=== PATIENT | female | born 1965 | race Two or more races ===

== ENCOUNTER 2021-09-17 08:24 | Day surgery (SDC) | payer OTHER ==
[2021-09-17 09:44] LABS: HEMATOCRIT 42.8 % (32.4-45.2); MCH 26.1 pg (25.7-33.7); MCHC 32.6 g/dl (32.0-36.0); MEAN CELL VOLUME 80.1 fl (80-96); MEAN PLT VOLUME 9.7 fl (7.5-11.1); PLATELET COUNT 284 10^3/uL (134-434); RBC 5.34 M/mm3 (3.60-5.2); RDW 13.4 % (11.6-15.6); WHITE BLOOD COUNT 12.9 K/mm3 (4.0-10.0)
[2021-09-17 10:13] LABS: CALCIUM 9.6 mg/dL (8.5-10.1)
[2021-09-17 10:14] LABS: ALBUMIN 3.9 g/dl (3.4-5.0); BLOOD UREA NITROGEN 14.9 mg/dL (7-18)
[2021-09-17 10:17] LABS: CREATININE 0.8 mg/dL (0.55-1.3)
[2021-09-17 10:18] LABS: BILIRUBIN,TOTAL 0.6 mg/dL (0.2-1); TOT PROT 7.6 g/dl (6.4-8.2)
[2021-09-17] MEDS ORDERED: PALONOSETRON HCL 0.25 MG/5 ML VIAL IVPUSH ONE (10:30)
[2021-09-17] MEDS ORDERED: DEXAMETHASONE SODIUM PHOSPHATE 10 MG in SODIUM CHLORIDE 50 ML IVPB ONE (10:30)
[2021-09-17] MEDS ORDERED: FOSAPREPITANT DIMEGLUMINE 150 MG in SODIUM CHLORIDE 145 ML IVPB ONE (10:30)
[2021-09-17] MEDS ORDERED: PERTUZUMAB 840 MG in SODIUM CHLORIDE 250 ML IVPB ONE (11:00)
[2021-09-17] MEDS ORDERED: TRASTUZUMAB-ANNS 510 MG in SODIUM CHLORIDE 250 ML IVPB ONE (12:00)
[2021-09-17 12:57] LABS: ANISOCYTOSIS 0; HELMET CELLS 0; HOWELL-JOLLY BODIES 0; MACROCYTOSIS 0; OVALOCYTE 0; PLATELET ESTIMATE NORMAL; ROULEAU 0; SICKELED CELLS 0; TARGET CELLS 0; TEAR DROP CELLS 0; TOXIC GRANULATION 0
[2021-09-17] MEDS ORDERED: DOCETAXEL 124 MG in SODIUM CHLORIDE 250 ML IV ONE (13:30)
[2021-09-17 17:18] VITALS: TEMP 98.1
[2021-09-17 17:29] VITALS: BP 152/87; PULSE 101
[2021-09-17] MEDS ORDERED: PORTA CATH FLUSH 10 ML IVPUSH ONE (17:29)
== END 2021-09-17 18:57 | disposition home or self-care (01) ==
LOC: JCHEMO 08:24
PROVIDERS: ATTEND Internal Medicine Hematology & Oncology
DX: Z51.11 Encounter for antineoplastic chemotherapy (principal); C50.911 Malignant neoplasm of unspecified site of right female breast
CPT/HCPCS: 36415; 80053; 83615; 83735; 85025; 96367; 96375; 96413; 96417; J1453; J2469; J9171; J9306; Q5117

== ENCOUNTER 2021-09-22 08:50 | Day surgery (SDC) | payer OTHER ==
[2021-09-22] MEDS ORDERED: PEGFILGRASTIM-CBQV (UDENYCA) 6 MG/0.6 ML SYRINGE SQ ONE (09:00)
[2021-09-22 15:28] VITALS: BP 113/84; PULSE 108; TEMP 98.1
== END 2021-09-22 12:30 | disposition home or self-care (01) ==
LOC: JCHEMO 08:50 → J7W 08:51 → JCHEMO 12:30
PROVIDERS: ATTEND Internal Medicine Hematology & Oncology
PROC: 3E033GC Introduction of Other Therapeutic Substance into Peripheral Vein, Percutaneous Approach (ICD-10-PCS; principal; 2021-09-22)
DX: Z76.89 Persons encountering health services in other specified circumstances (principal); C50.911 Malignant neoplasm of unspecified site of right female breast
CPT/HCPCS: 96372; Q5111

== ENCOUNTER 2021-09-26 09:50 | Day surgery (SDC) | payer OTHER ==
[2021-09-26 10:23] VITALS: BP 123/88; PULSE 90; TEMP 98.3
[2021-09-26 11:00] LABS: HEMATOCRIT 40.9 % (32.4-45.2); HEMOGLOBIN 13.2 GM/dL (10.7-15.3); MCH 25.6 pg (25.7-33.7); MCHC 32.2 g/dl (32.0-36.0); MEAN CELL VOLUME 79.5 fl (80-96); MEAN PLT VOLUME 9.6 fl (7.5-11.1); PLATELET COUNT 269 10^3/uL (134-434); RBC 5.15 M/mm3 (3.60-5.2); RDW 13.2 % (11.6-15.6)
[2021-09-26 11:08] LABS: WHITE BLOOD COUNT 57.3 K/mm3 (4.0-10.0)
[2021-09-26 11:24] LABS: CALCIUM 8.8 mg/dL (8.5-10.1)
[2021-09-26 11:25] LABS: ALBUMIN 3.2 g/dl (3.4-5.0); MAGNESIUM 2.1 mg/dL (1.8-2.4)
[2021-09-26 11:28] LABS: CREATININE 0.7 mg/dL (0.55-1.3)
[2021-09-26 11:29] LABS: BILIRUBIN,TOTAL 0.5 mg/dL (0.2-1); TOT PROT 6.4 g/dl (6.4-8.2)
[2021-09-26] MEDS ORDERED: MAG HYDROX/ALH/SMC/DPHA/LIDO 240 ML MOUTHWASH MM SCH (12:00)
[2021-09-26] MEDS ORDERED: LOPERAMIDE HCL 2 MG CAPSULE PO ONE (12:00)
[2021-09-26] MEDS ORDERED: NYSTATIN 500,000 UNITS/5 ML SUSPENSION PO SCH (12:00)
[2021-09-26] MEDS ORDERED: DEXTROSE 5%-NORMAL SALINE 1,000 ML IV ONE (12:00)
[2021-09-26] MEDS: KCL 10 MEQ IVPB 10 MEQ/100 ML INFUS.BAG IVPB PRN ×2 (12:14→13:23)
[2021-09-26 12:28] LABS: ANISOCYTOSIS 0; MACROCYTOSIS 0; PLATELET ESTIMATE NORMAL; TOXIC GRANULATION 2+
[2021-09-26] MEDS ORDERED: ONDANSETRON 4 MG/2 ML VIAL ONE (13:17)
[2021-09-26] MEDS ORDERED: PANTOPRAZOLE SODIUM 40 MG VIAL IVPUSH ONE (13:30)
[2021-09-26] MEDS ORDERED: ONDANSETRON 4 MG/2 ML VIAL IVPB ONE (13:30)
[2021-09-26] MEDS ORDERED: LOPERAMIDE HCL 2 MG CAPSULE PO PRN (16:00)
[2021-09-26] MEDS ORDERED: PORTA CATH FLUSH 10 ML IVPUSH ONE (16:01)
== END 2021-09-26 16:37 | disposition home or self-care (01) ==
LOC: JONCCHEMO 09:50 → JCHEMO 09:50 → JONCCHEMO 16:37
PROVIDERS: ATTEND Internal Medicine Hematology & Oncology
PROC: 3E043GC Introduction of Other Therapeutic Substance into Central Vein, Percutaneous Approach (ICD-10-PCS; principal; 2021-09-26)
PROC: 3E043GC Introduction of Other Therapeutic Substance into Central Vein, Percutaneous Approach (ICD-10-PCS; 2021-09-26)
DX: C50.911 Malignant neoplasm of unspecified site of right female breast (principal); Z76.89 Persons encountering health services in other specified circumstances
CPT/HCPCS: 36415; 80053; 83735; 85025; 96365; 96367

== ENCOUNTER 2021-10-15 08:41 | Day surgery (SDC) | payer OTHER ==
[2021-10-15] MEDS ORDERED: DEXAMETHASONE SODIUM PHOSPHATE 10 MG, DIPHENHYDRAMINE 50 MG in SODIUM CHLORIDE 100 ML IVPB ONE (10:00)
[2021-10-15] MEDS ORDERED: PALONOSETRON HCL 0.25 MG/5 ML VIAL IVPUSH ONE (10:00)
[2021-10-15] MEDS ORDERED: FOSAPREPITANT DIMEGLUMINE 150 MG in SODIUM CHLORIDE 145 ML IVPB ONE (10:00)
[2021-10-15 10:01] LABS: BASO % 0.2 % (0-2.0); HEMATOCRIT 35.9 % (32.4-45.2); LYMPH % 12.9 % (8-40); MCH 26.6 pg (25.7-33.7); MCHC 33.4 g/dl (32.0-36.0); MEAN CELL VOLUME 79.4 fl (80-96); MEAN PLT VOLUME 8.2 fl (7.5-11.1); NEUT % 80.9 % (42.8-82.8); PLATELET COUNT 389 10^3/uL (134-434); RBC 4.52 M/mm3 (3.60-5.2); RDW 14.5 % (11.6-15.6); WHITE BLOOD COUNT 9.6 K/mm3 (4.0-10.0)
[2021-10-15 10:27] LABS: ALBUMIN 3.5 g/dl (3.4-5.0); BLOOD UREA NITROGEN 12.9 mg/dL (7-18); CALCIUM 9.5 mg/dL (8.5-10.1); MAGNESIUM 2.1 mg/dL (1.8-2.4)
[2021-10-15 10:30] LABS: CREATININE 0.7 mg/dL (0.55-1.3)
[2021-10-15] MEDS ORDERED: DOCETAXEL 100 MG in SODIUM CHLORIDE 250 ML IV ONE (10:30)
[2021-10-15 10:32] LABS: BILIRUBIN,TOTAL 0.5 mg/dL (0.2-1); TOT PROT 6.6 g/dl (6.4-8.2)
[2021-10-15] MEDS ORDERED: PERTUZUMAB 420 MG in SODIUM CHLORIDE 250 ML IVPB ONE (11:30)
[2021-10-15] MEDS ORDERED: SODIUM CHLORIDE IVPB ONE (12:00)
[2021-10-15] MEDS ORDERED: TRASTUZUMAB ANNS IVPB ONE (12:00)
[2021-10-15 16:43] VITALS: BP 118/76; PULSE 90; TEMP 97.9
== END 2021-10-15 15:00 | disposition home or self-care (01) ==
LOC: J7W 08:41 → JCHEMO 08:41
PROVIDERS: ATTEND Internal Medicine Hematology & Oncology
DX: Z51.11 Encounter for antineoplastic chemotherapy (principal); C50.911 Malignant neoplasm of unspecified site of right female breast
CPT/HCPCS: 36415; 80053; 83615; 83735; 85025; 96367; 96375; 96413; 96417; J1453; J2469; J9171; J9306; Q5117

== ENCOUNTER 2021-10-16 13:21 | Day surgery (SDC) | payer OTHER ==
[~2021-10-16 13:21] MED LIST: PEGFILGRASTIM-CBQV (UDENYCA) 6 MG/0.6 ML SYRINGE SQ ONE
[2021-10-16 17:37] VITALS: BP 137/71; PULSE 72; TEMP 98.4
== END 2021-10-16 13:35 | disposition home or self-care (01) ==
LOC: JCHEMO 13:21 → J7W 13:23 → JCHEMO 13:35
PROVIDERS: ATTEND Internal Medicine Hematology & Oncology
PROC: 3E013GC Introduction of Other Therapeutic Substance into Subcutaneous Tissue, Percutaneous Approach (ICD-10-PCS; principal; 2021-10-16)
DX: C50.911 Malignant neoplasm of unspecified site of right female breast (principal); Z76.89 Persons encountering health services in other specified circumstances
CPT/HCPCS: 96372; Q5111

== ENCOUNTER 2021-10-24 09:10 | Day surgery (SDC) | payer OTHER ==
[~2021-10-24 09:10] MED LIST changes: +ONDANSETRON 4 MG/2 ML VIAL IVPB ONE; -PEGFILGRASTIM-CBQV (UDENYCA) 6 MG/0.6 ML SYRINGE SQ ONE; +SODIUM CHLORIDE 1,000 ML IV ONE
[2021-10-24 09:50] LABS: HEMATOCRIT 37.6 % (32.4-45.2); HEMOGLOBIN 12.4 GM/dL (10.7-15.3); MCH 26.5 pg (25.7-33.7); MCHC 32.9 g/dl (32.0-36.0); MEAN CELL VOLUME 80.6 fl (80-96); MEAN PLT VOLUME 9.1 fl (7.5-11.1); PLATELET COUNT 185 10^3/uL (134-434); RBC 4.67 M/mm3 (3.60-5.2); RDW 14.7 % (11.6-15.6); WHITE BLOOD COUNT 26.4 K/mm3 (4.0-10.0)
[2021-10-24 10:17] LABS: CALCIUM 9.1 mg/dL (8.5-10.1)
[2021-10-24 10:18] LABS: ALBUMIN 3.7 g/dl (3.4-5.0); BLOOD UREA NITROGEN 7.8 mg/dL (7-18); MAGNESIUM 2.2 mg/dL (1.8-2.4)
[2021-10-24 10:20] LABS: CREATININE 0.7 mg/dL (0.55-1.3)
[2021-10-24 10:22] LABS: BILIRUBIN,TOTAL 0.4 mg/dL (0.2-1); TOT PROT 6.2 g/dl (6.4-8.2)
[2021-10-24 10:59] LABS: ANISOCYTOSIS 1+; MACROCYTOSIS 0; OVALOCYTE 2+; TEAR DROP CELLS 1+; TOXIC GRANULATION 2+
[2021-10-24] MEDS ORDERED: POTASSIUM CHLORIDE TABS 20 MEQ TABLET.ER (FP) PO ONE (11:00)
[2021-10-24] MEDS: KCL 10 MEQ IVPB 10 MEQ/100 ML INFUS.BAG IVPB SCH ×2 (11:22→12:22)
[2021-10-24] MEDS ORDERED: ONDANSETRON 4 MG/2 ML VIAL IVPB ONE (11:30)
[2021-10-24 16:12] VITALS: TEMP 98.8
[2021-10-24 16:18] VITALS: BP 115/73; PULSE 84
== END 2021-10-24 14:00 | disposition home or self-care (01) ==
LOC: JINFUSION 09:10 → J7W 09:10 → JINFUSION 14:00
PROVIDERS: ATTEND Internal Medicine Hematology & Oncology
PROC: 3E043GC Introduction of Other Therapeutic Substance into Central Vein, Percutaneous Approach (ICD-10-PCS; principal; 2021-10-24)
PROC: 3E043GC Introduction of Other Therapeutic Substance into Central Vein, Percutaneous Approach (ICD-10-PCS; 2021-10-24)
DX: C50.911 Malignant neoplasm of unspecified site of right female breast (principal); Z76.89 Persons encountering health services in other specified circumstances
CPT/HCPCS: 36415; 80053; 83615; 83735; 85025; 96365; 96366; 96368; 96375

== ENCOUNTER 2021-11-05 08:35 | Day surgery (SDC) | payer OTHER ==
[2021-11-05 09:57] LABS: BASO % 0.6 % (0-2.0); EOS % 0.5 % (0-4.5); HEMATOCRIT 34.9 % (32.4-45.2); HEMOGLOBIN 11.3 GM/dL (10.7-15.3); LYMPH % 24.5 % (8-40); MCH 26.7 pg (25.7-33.7); MCHC 32.5 g/dl (32.0-36.0); MEAN PLT VOLUME 7.9 fl (7.5-11.1); MONO % 5.4 % (3.8-10.2); PLATELET COUNT 312 10^3/uL (134-434); RBC 4.26 M/mm3 (3.60-5.2); RDW 17.2 % (11.6-15.6); WHITE BLOOD COUNT 6.7 K/mm3 (4.0-10.0)
[2021-11-05 10:17] LABS: ALBUMIN 3.6 g/dl (3.4-5.0); CALCIUM 9.1 mg/dL (8.5-10.1); MAGNESIUM 2.1 mg/dL (1.8-2.4)
[2021-11-05 10:18] LABS: BLOOD UREA NITROGEN 11.5 mg/dL (7-18)
[2021-11-05 10:20] LABS: CREATININE 0.5 mg/dL (0.55-1.3)
[2021-11-05 10:22] LABS: BILIRUBIN,TOTAL 0.7 mg/dL (0.2-1); TOT PROT 6.1 g/dl (6.4-8.2)
[2021-11-05] MEDS ORDERED: FOSAPREPITANT DIMEGLUMINE 150 MG in SODIUM CHLORIDE 145 ML IVPB ONE (10:30)
[2021-11-05] MEDS ORDERED: PALONOSETRON HCL 0.25 MG/5 ML VIAL IVPUSH ONE (10:30)
[2021-11-05] MEDS ORDERED: DEXAMETHASONE SODIUM PHOSPHATE 10 MG in SODIUM CHLORIDE 50 ML IVPB ONE (10:30)
[2021-11-05] MEDS ORDERED: DOCETAXEL 100 MG in SODIUM CHLORIDE 250 ML IV ONE (11:00)
[2021-11-05] MEDS ORDERED: PERTUZUMAB 420 MG in SODIUM CHLORIDE 250 ML IVPB ONE (12:00)
[2021-11-05] MEDS ORDERED: SODIUM CHLORIDE IVPB ONE (12:30)
[2021-11-05] MEDS ORDERED: TRASTUZUMAB ANNS IVPB ONE (12:30)
[2021-11-05 14:52] VITALS: BP 133/90; PULSE 101; TEMP 98.9
== END 2021-11-05 14:15 | disposition home or self-care (01) ==
LOC: JCHEMO 08:35 → J7W 08:36 → JCHEMO 14:15
PROVIDERS: ATTEND Internal Medicine Hematology & Oncology
PROC: 3E04305 Introduction of Other Antineoplastic into Central Vein, Percutaneous Approach (ICD-10-PCS; principal; 2021-11-05)
PROC: 3E043GC Introduction of Other Therapeutic Substance into Central Vein, Percutaneous Approach (ICD-10-PCS; 2021-11-05)
DX: Z51.11 Encounter for antineoplastic chemotherapy (principal); C50.911 Malignant neoplasm of unspecified site of right female breast
CPT/HCPCS: 36415; 80053; 83615; 83735; 85025; 96367; 96413; 96417; J9306; Q5117

== ENCOUNTER 2021-11-26 07:14 | Day surgery (SDC) | payer OTHER ==
[~2021-11-26 07:14] MED LIST changes: -ONDANSETRON 4 MG/2 ML VIAL IVPB ONE; +PEGFILGRASTIM-CBQV (UDENYCA) 6 MG/0.6 ML SYRINGE SQ ONE; -SODIUM CHLORIDE 1,000 ML IV ONE
[2021-11-26 07:58] LABS: EOS % 2.6 % (0-4.5); HEMATOCRIT 37.7 % (32.4-45.2); HEMOGLOBIN 12.6 GM/dL (10.7-15.3); LYMPH % 34.4 % (8-40); MCH 27.2 pg (25.7-33.7); MCHC 33.5 g/dl (32.0-36.0); MEAN CELL VOLUME 81.2 fl (80-96); MEAN PLT VOLUME 8.3 fl (7.5-11.1); PLATELET COUNT 245 10^3/uL (134-434); RBC 4.65 M/mm3 (3.60-5.2); RDW 15.7 % (11.6-15.6); WHITE BLOOD COUNT 5.6 K/mm3 (4.0-10.0)
[2021-11-26 08:18] LABS: ALBUMIN 3.9 g/dl (3.4-5.0); BLOOD UREA NITROGEN 15.6 mg/dL (7-18)
[2021-11-26 08:20] LABS: BILIRUBIN,DIRECT 0.2 mg/dL (0.0-0.2)
[2021-11-26 08:21] LABS: CREATININE 0.7 mg/dL (0.55-1.3)
[2021-11-26 08:22] LABS: BILIRUBIN,TOTAL 0.8 mg/dL (0.2-1); TOT PROT 6.6 g/dl (6.4-8.2)
[2021-11-26] MEDS ORDERED: DEXAMETHASONE SODIUM PHOSPHATE 10 MG in SODIUM CHLORIDE 50 ML IVPB ONE (08:30)
[2021-11-26] MEDS ORDERED: PERTUZUMAB 420 MG in SODIUM CHLORIDE 250 ML IVPB ONE (09:00)
[2021-11-26] MEDS ORDERED: TRASTUZUMAB ANNS IVPB ONE (09:30)
[2021-11-26] MEDS ORDERED: SODIUM CHLORIDE IVPB ONE (09:30)
[2021-11-26 10:57] VITALS: TEMP 98.6
[2021-11-26 11:08] VITALS: BP 135/92; PULSE 91
[2021-11-26] MEDS ORDERED: PORTA CATH FLUSH 10 ML IVPUSH PRN (11:08)
== END 2021-11-26 10:50 | disposition home or self-care (01) ==
LOC: JCHEMO 07:14 → J7W 07:15 → JCHEMO 10:50
PROVIDERS: ATTEND Internal Medicine Hematology & Oncology
DX: Z51.11 Encounter for antineoplastic chemotherapy (principal); C50.911 Malignant neoplasm of unspecified site of right female breast
CPT/HCPCS: 36415; 80048; 80076; 85025; 96375; 96413; 96417; J9306; Q5117

== ENCOUNTER 2021-12-17 08:37 | Day surgery (SDC) | payer OTHER ==
[2021-12-17 09:18] VITALS: TEMP 98.5
[2021-12-17] MEDS ORDERED: PORTA CATH FLUSH 10 ML IVPUSH PRN ×2 (09:18→13:08)
[2021-12-17 09:23] LABS: BASO % 0.9 % (0-2.0); EOS % 2.7 % (0-4.5); HEMATOCRIT 39.3 % (32.4-45.2); HEMOGLOBIN 12.9 GM/dL (10.7-15.3); LYMPH % 31.9 % (8-40); MCH 26.3 pg (25.7-33.7); MCHC 32.8 g/dl (32.0-36.0); MEAN CELL VOLUME 80.1 fl (80-96); MEAN PLT VOLUME 8.2 fl (7.5-11.1); MONO % 5.3 % (3.8-10.2); NEUT % 59.2 % (42.8-82.8); PLATELET COUNT 259 10^3/uL (134-434); RDW 14.6 % (11.6-15.6); WHITE BLOOD COUNT 5.6 K/mm3 (4.0-10.0)
[2021-12-17] MEDS ORDERED: FOSAPREPITANT DIMEGLUMINE 150 MG in SODIUM CHLORIDE 145 ML IVPB ONE (09:30)
[2021-12-17] MEDS ORDERED: DEXAMETHASONE SODIUM PHOSPHATE 10 MG in SODIUM CHLORIDE 50 ML IVPB ONE (09:30)
[2021-12-17] MEDS ORDERED: PALONOSETRON HCL 0.25 MG/5 ML VIAL IVPUSH ONE (09:30)
[2021-12-17 09:47] LABS: CALCIUM 9.2 mg/dL (8.5-10.1)
[2021-12-17 09:48] LABS: ALBUMIN 3.8 g/dl (3.4-5.0); BLOOD UREA NITROGEN 11.9 mg/dL (7-18); MAGNESIUM 2.3 mg/dL (1.8-2.4)
[2021-12-17 09:51] LABS: CREATININE 0.6 mg/dL (0.55-1.3)
[2021-12-17 09:53] LABS: BILIRUBIN,TOTAL 0.7 mg/dL (0.2-1); TOT PROT 6.7 g/dl (6.4-8.2)
[2021-12-17] MEDS ORDERED: PERTUZUMAB 420 MG in SODIUM CHLORIDE 250 ML IVPB ONE (10:00)
[2021-12-17] MEDS ORDERED: TRASTUZUMAB ANNS IVPB ONE (10:30)
[2021-12-17] MEDS ORDERED: SODIUM CHLORIDE IVPB ONE (10:30)
[2021-12-17 13:08] VITALS: BP 118/74; PULSE 18
== END 2021-12-17 13:09 | disposition home or self-care (01) ==
LOC: J7W 08:37 → JCHEMO 08:37
PROVIDERS: ATTEND Internal Medicine Hematology & Oncology
DX: C50.911 Malignant neoplasm of unspecified site of right female breast (principal)
CPT/HCPCS: 36415; 80053; 83615; 83735; 85025; 96367; 96375; 96413; 96417; J1453; J2469; J9306; Q5117

== ENCOUNTER 2022-01-07 08:38 | Day surgery (SDC) | payer OTHER ==
[2022-01-07] MEDS: PORTA CATH FLUSH 10 ML IVPUSH PRN ×2 (09:30→13:45)
[2022-01-07 10:04] LABS: BASO % 0.9 % (0-2.0); EOS % 2.3 % (0-4.5); HEMOGLOBIN 13.3 GM/dL (10.7-15.3); LYMPH % 35.8 % (8-40); MCH 26.4 pg (25.7-33.7); MCHC 33.3 g/dl (32.0-36.0); MEAN CELL VOLUME 79.3 fl (80-96); MEAN PLT VOLUME 8.8 fl (7.5-11.1); PLATELET COUNT 238 10^3/uL (134-434); RBC 5.04 M/mm3 (3.60-5.2); RDW 13.9 % (11.6-15.6); WHITE BLOOD COUNT 4.8 K/mm3 (4.0-10.0)
[2022-01-07 10:23] LABS: ALBUMIN 3.9 g/dl (3.4-5.0); BLOOD UREA NITROGEN 14.9 mg/dL (7-18); CALCIUM 9.5 mg/dL (8.5-10.1)
[2022-01-07 10:26] LABS: BILIRUBIN,DIRECT 0.1 mg/dL (0.0-0.2); CREATININE 0.7 mg/dL (0.55-1.3)
[2022-01-07 10:28] LABS: BILIRUBIN,TOTAL 0.7 mg/dL (0.2-1); TOT PROT 6.9 g/dl (6.4-8.2)
[2022-01-07] MEDS ORDERED: DEXAMETHASONE SODIUM PHOSPHATE 10 MG in SODIUM CHLORIDE 50 ML IVPB ONE (10:30)
[2022-01-07] MEDS ORDERED: PERTUZUMAB 420 MG in SODIUM CHLORIDE 250 ML IVPB ONE (11:00)
[2022-01-07] MEDS ORDERED: TRASTUZUMAB ANNS IVPB ONE (11:30)
[2022-01-07] MEDS ORDERED: SODIUM CHLORIDE IVPB ONE (11:30)
[2022-01-07] MEDS ORDERED: ALTEPLASE (CATHFLO) 2 MG/2 ML VIAL CVP ONE (13:15)
[2022-01-07 17:36] VITALS: TEMP 98.1
[2022-01-07 17:44] VITALS: BP 132/92; PULSE 80
== END 2022-01-07 14:00 | disposition home or self-care (01) ==
LOC: JCHEMO 08:38 → J7W 08:39 → JCHEMO 14:00
PROVIDERS: ATTEND Internal Medicine Hematology & Oncology
PROC: 3E04305 Introduction of Other Antineoplastic into Central Vein, Percutaneous Approach (ICD-10-PCS; principal; 2022-01-07)
PROC: 3E043GC Introduction of Other Therapeutic Substance into Central Vein, Percutaneous Approach (ICD-10-PCS; 2022-01-07)
DX: Z51.11 Encounter for antineoplastic chemotherapy (principal); C50.911 Malignant neoplasm of unspecified site of right female breast
CPT/HCPCS: 36415; 80048; 80076; 85025; 96367; 96413; 96417; J2997; J9306; Q5117

== ENCOUNTER 2022-01-28 08:42 | Day surgery (SDC) | payer OTHER ==
[2022-01-28 09:25] LABS: HEMATOCRIT 42.6 % (32.4-45.2); HEMOGLOBIN 13.9 GM/dL (10.7-15.3); MCH 25.4 pg (25.7-33.7); MCHC 32.5 g/dl (32.0-36.0); MEAN CELL VOLUME 78.2 fl (80-96); MEAN PLT VOLUME 9.1 fl (7.5-11.1); PLATELET COUNT 235 10^3/uL (134-434); RBC 5.45 M/mm3 (3.60-5.2); RDW 14.2 % (11.6-15.6); WHITE BLOOD COUNT 6.4 K/mm3 (4.0-10.0)
[2022-01-28 09:46] LABS: BLOOD UREA NITROGEN 14.2 mg/dL (7-18); CALCIUM 9.7 mg/dL (8.5-10.1)
[2022-01-28 09:47] LABS: ALBUMIN 3.9 g/dl (3.4-5.0)
[2022-01-28 09:49] LABS: BILIRUBIN,DIRECT 0.1 mg/dL (0.0-0.2)
[2022-01-28 09:50] LABS: BILIRUBIN,TOTAL 0.5 mg/dL (0.2-1); CREATININE 0.7 mg/dL (0.55-1.3)
[2022-01-28] MEDS ORDERED: DEXAMETHASONE SODIUM PHOSPHATE 10 MG in SODIUM CHLORIDE 50 ML IVPB ONE (10:00)
[2022-01-28 10:28] LABS: ANISOCYTOSIS 0; HELMET CELLS 0; HOWELL-JOLLY BODIES 0; MACROCYTOSIS 0; OVALOCYTE 0; ROULEAU 0; SICKELED CELLS 0; TARGET CELLS 0; TEAR DROP CELLS 0; TOXIC GRANULATION 0
[2022-01-28] MEDS ORDERED: TRASTUZUMAB ANNS IVPB ONE (10:30)
[2022-01-28] MEDS ORDERED: SODIUM CHLORIDE IVPB ONE (10:30)
[2022-01-28 16:32] VITALS: BP 142/78; PULSE 66; TEMP 98.4
[2022-01-28] MEDS ORDERED: PORTA CATH FLUSH 10 ML IVPUSH PRN (16:32)
== END 2022-01-28 11:45 | disposition home or self-care (01) ==
LOC: JCHEMO 08:42 → J7W 08:45 → JCHEMO 11:45
PROVIDERS: ATTEND Internal Medicine Hematology & Oncology
DX: Z51.11 Encounter for antineoplastic chemotherapy (principal); C50.911 Malignant neoplasm of unspecified site of right female breast
CPT/HCPCS: 36415; 80048; 80076; 85027; 96375; 96413; Q5117

== ENCOUNTER 2022-02-16 08:16 | Day surgery (SDC) | payer OTHER ==
[2022-02-16] MEDS ORDERED: DEXAMETHASONE SODIUM PHOSPHATE 10 MG in SODIUM CHLORIDE 50 ML IVPB ONE (09:30)
[2022-02-16 09:48] LABS: BASO % 0.5 % (0-2.0); EOS % 2.4 % (0-4.5); HEMOGLOBIN 14.4 GM/dL (10.7-15.3); LYMPH % 35.1 % (8-40); MCH 25.5 pg (25.7-33.7); MCHC 32.8 g/dl (32.0-36.0); MEAN CELL VOLUME 77.8 fl (80-96); MEAN PLT VOLUME 9.1 fl (7.5-11.1); MONO % 5.2 % (3.8-10.2); NEUT % 56.8 % (42.8-82.8); PLATELET COUNT 260 10^3/uL (134-434); RBC 5.66 M/mm3 (3.60-5.2); RDW 14.4 % (11.6-15.6); WHITE BLOOD COUNT 6.4 K/mm3 (4.0-10.0)
[2022-02-16] MEDS ORDERED: SODIUM CHLORIDE IVPB ONE (10:00)
[2022-02-16] MEDS ORDERED: TRASTUZUMAB ANNS IVPB ONE (10:00)
[2022-02-16 10:06] LABS: ALBUMIN 4.1 g/dl (3.4-5.0); BLOOD UREA NITROGEN 14.8 mg/dL (7-18); CALCIUM 9.6 mg/dL (8.5-10.1)
[2022-02-16 10:10] LABS: BILIRUBIN,DIRECT 0.2 mg/dL (0.0-0.2); CREATININE 0.7 mg/dL (0.55-1.3)
[2022-02-16 10:11] LABS: BILIRUBIN,TOTAL 0.8 mg/dL (0.2-1); TOT PROT 7.5 g/dl (6.4-8.2)
[2022-02-16 15:24] VITALS: TEMP 98.5
[2022-02-16] MEDS ORDERED: PORTA CATH FLUSH 10 ML IVPUSH PRN (15:30)
[2022-02-16 15:31] VITALS: BP 139/75; PULSE 65
== END 2022-02-16 12:30 | disposition home or self-care (01) ==
LOC: JCHEMO 08:16 → J7W 08:17 → JCHEMO 12:30
PROVIDERS: ATTEND Internal Medicine Hematology & Oncology
DX: Z51.11 Encounter for antineoplastic chemotherapy (principal); C50.911 Malignant neoplasm of unspecified site of right female breast
CPT/HCPCS: 36415; 80048; 80076; 85025; 96367; 96413; Q5117

== ENCOUNTER 2022-02-18 04:06 | Day surgery (SDC) | payer OTHER ==
[2022-02-16 12:31] VITALS: BMI 26.5
[2022-02-18] MEDS ORDERED: METHYLENE BLUE 50 MG/10 ML AMPUL ONE (11:27)
[2022-02-18] MEDS ORDERED: PROPOFOL 20 ML ONE ×4 (11:42→11:46)
[2022-02-18] MEDS ORDERED: MIDAZOLAM HCL 2 MG/2 ML SINGLE DOSE VIAL ONE (11:45)
[2022-02-18] MEDS ORDERED: ISOSULFAN BLUE 50 MG/5 ML VIAL SQ ONE (12:44)
[2022-02-18] MEDS ORDERED: ceFAZolin SODIUM 1 GM VIAL ONE (12:59)
[2022-02-18] MEDS ORDERED: ceFAZolin SODIUM 1 GM VIAL IVPB ONE (13:01)
[2022-02-18] MEDS ORDERED: DEXAMETHASONE SOD PHOSPHATE 4 MG/1 ML VIAL ONE (13:03)
[2022-02-18] MEDS ORDERED: BUPIVACAINE HCL/PF 0.25% (2.5MG/ML) 10 ML VIAL IJ ONE (13:30)
[2022-02-18] MEDS ORDERED: BUPIVACAINE HCL/PF 0.25% (2.5MG/ML) 10 ML VIAL ONE (13:48)
[2022-02-18] MEDS ORDERED: BENZOIN/ALOE VERA/STORAX/TOLU 58 ML BOTTLE ONE (14:04)
[2022-02-18] MEDS ORDERED: ACETAMINOPHEN 325 MG TABLET (FP) PO PRN (14:26)
[2022-02-18] MEDS ORDERED: ONDANSETRON 4 MG/2 ML VIAL IVPUSH PRN (14:26)
[2022-02-18] MEDS ORDERED: LACTATED RINGERS SOLUTION 1,000 ML IV SCH (14:30)
[2022-02-18] MEDS ORDERED: FENTANYL CITRATE/PF 50 MCG/ML VIAL ONE ×2 (14:43→15:23)
[2022-02-18 17:23] VITALS: TEMP 97.8
[2022-02-18] MEDS ORDERED: ONDANSETRON 4 MG/2 ML VIAL ONE (17:38)
[2022-02-18 19:04] VITALS: BP 130/73; PULSE 77
== END 2022-02-18 19:15 | disposition home or self-care (01) ==
LOC: JASU-SURG 04:06
PROVIDERS: ATTEND Surgery Surgical Oncology
PROC: 07B50ZX Excision of Right Axillary Lymphatic, Open Approach, Diagnostic (ICD-10-PCS; 2022-02-18)
PROC: C71L1ZZ Planar Nuclear Medicine Imaging of Upper Chest Lymphatics using Technetium 99m (Tc-99m) (ICD-10-PCS; 2022-02-18)
PROC: 0HBT0ZZ Excision of Right Breast, Open Approach (ICD-10-PCS; principal; 2022-02-18 12:00)
DX: C50.911 Malignant neoplasm of unspecified site of right female breast (principal)
CPT/HCPCS: 19281; 76098-TC-FY; 76641-TC-RT; 78195-TC; 88307-TC; 88342-TC; 94760; A9541; Q9968

== ENCOUNTER 2022-03-11 09:30 | Day surgery (SDC) | payer OTHER ==
[2022-03-11] MEDS ORDERED: DEXAMETHASONE SODIUM PHOSPHATE 10 MG in SODIUM CHLORIDE 50 ML IVPB ONE (10:00)
[2022-03-11 10:12] LABS: BASO % 0.6 % (0-2.0); HEMATOCRIT 40.3 % (32.4-45.2); HEMOGLOBIN 13.2 GM/dL (10.7-15.3); LYMPH % 34.3 % (8-40); MCH 24.9 pg (25.7-33.7); MCHC 32.9 g/dl (32.0-36.0); MEAN CELL VOLUME 75.8 fl (80-96); MEAN PLT VOLUME 8.4 fl (7.5-11.1); MONO % 5.4 % (3.8-10.2); NEUT % 57.7 % (42.8-82.8); PLATELET COUNT 272 10^3/uL (134-434); RBC 5.32 M/mm3 (3.60-5.2); RDW 14.7 % (11.6-15.6); WHITE BLOOD COUNT 5.8 K/mm3 (4.0-10.0)
[2022-03-11] MEDS ORDERED: TRASTUZUMAB ANNS IVPB ONE (10:30)
[2022-03-11] MEDS ORDERED: SODIUM CHLORIDE IVPB ONE (10:30)
[2022-03-11 10:31] LABS: CALCIUM 9.4 mg/dL (8.5-10.1)
[2022-03-11 10:32] LABS: ALBUMIN 4.1 g/dl (3.4-5.0); BLOOD UREA NITROGEN 11.2 mg/dL (7-18)
[2022-03-11 10:35] LABS: BILIRUBIN,DIRECT 0.2 mg/dL (0.0-0.2); CREATININE 0.6 mg/dL (0.55-1.3)
[2022-03-11 10:37] LABS: BILIRUBIN,TOTAL 0.8 mg/dL (0.2-1); TOT PROT 7.2 g/dl (6.4-8.2)
[2022-03-11 15:54] VITALS: RESP 18; TEMP 98.7
[2022-03-11 16:01] VITALS: BP 137/82; PULSE 74
[2022-03-11] MEDS ORDERED: PORTA CATH FLUSH 10 ML IVPUSH PRN (16:02)
== END 2022-03-11 12:45 | disposition home or self-care (01) ==
LOC: JCHEMO 09:30
PROVIDERS: ATTEND Internal Medicine Hematology & Oncology
DX: Z51.11 Encounter for antineoplastic chemotherapy (principal); C50.911 Malignant neoplasm of unspecified site of right female breast
CPT/HCPCS: 36415; 80048; 80076; 85025; 96375; 96413; Q5117

== ENCOUNTER 2022-04-01 09:17 | Day surgery (SDC) | payer OTHER ==
[2022-04-01] MEDS ORDERED: DEXAMETHASONE SODIUM PHOSPHATE 10 MG in SODIUM CHLORIDE 50 ML IVPB ONE (10:00)
[2022-04-01] MEDS ORDERED: TRASTUZUMAB ANNS IVPB ONE (10:30)
[2022-04-01] MEDS ORDERED: SODIUM CHLORIDE IVPB ONE (10:30)
[2022-04-01 10:43] LABS: BASO % 0.5 % (0-2.0); EOS % 2.1 % (0-4.5); HEMATOCRIT 38.8 % (32.4-45.2); HEMOGLOBIN 12.8 GM/dL (10.7-15.3); LYMPH % 31.1 % (8-40); MCH 25.4 pg (25.7-33.7); MEAN CELL VOLUME 77.1 fl (80-96); MEAN PLT VOLUME 9.2 fl (7.5-11.1); MONO % 6.9 % (3.8-10.2); NEUT % 59.4 % (42.8-82.8); PLATELET COUNT 298 10^3/uL (134-434); RBC 5.03 M/mm3 (3.60-5.2); RDW 15.4 % (11.6-15.6); WHITE BLOOD COUNT 6.4 K/mm3 (4.0-10.0)
[2022-04-01 11:00] LABS: CALCIUM 9.5 mg/dL (8.5-10.1)
[2022-04-01 11:01] LABS: BLOOD UREA NITROGEN 13.8 mg/dL (7-18)
[2022-04-01 11:03] LABS: BILIRUBIN,DIRECT 0.2 mg/dL (0.0-0.2)
[2022-04-01 11:04] LABS: CREATININE 0.6 mg/dL (0.55-1.3)
[2022-04-01 11:05] LABS: BILIRUBIN,TOTAL 1.2 mg/dL (0.2-1); TOT PROT 6.9 g/dl (6.4-8.2)
[2022-04-01 14:31] VITALS: BP 129/77; PULSE 79; RESP 18; TEMP 98.7
[2022-04-01] MEDS ORDERED: PORTA CATH FLUSH 10 ML IVPUSH PRN (14:31)
== END 2022-04-01 13:00 | disposition home or self-care (01) ==
LOC: JCHEMO 09:17
PROVIDERS: ATTEND Internal Medicine Hematology & Oncology
DX: Z51.11 Encounter for antineoplastic chemotherapy (principal); C50.411 Malignant neoplasm of upper-outer quadrant of right female breast
CPT/HCPCS: 36415; 80048; 80076; 85025; 96375; 96413; Q5117

== ENCOUNTER 2022-04-22 08:58 | Day surgery (SDC) | payer OTHER ==
[2022-04-22] MEDS ORDERED: DEXAMETHASONE SODIUM PHOSPHATE 10 MG in SODIUM CHLORIDE 50 ML IVPB ONE (09:30)
[2022-04-22] MEDS ORDERED: TRASTUZUMAB ANNS IVPB ONE (10:00)
[2022-04-22] MEDS ORDERED: SODIUM CHLORIDE IVPB ONE (10:00)
[2022-04-22 10:17] LABS: BASO % 0.7 % (0-2.0); EOS % 2.5 % (0-4.5); HEMATOCRIT 38.6 % (32.4-45.2); HEMOGLOBIN 12.8 GM/dL (10.7-15.3); LYMPH % 22.8 % (8-40); MCH 26.8 pg (25.7-33.7); MCHC 33.3 g/dl (32.0-36.0); MEAN CELL VOLUME 80.4 fl (80-96); MEAN PLT VOLUME 9.1 fl (7.5-11.1); MONO % 7.5 % (3.8-10.2); NEUT % 66.5 % (42.8-82.8); PLATELET COUNT 215 10^3/uL (134-434); RDW 15.7 % (11.6-15.6); WHITE BLOOD COUNT 3.8 K/mm3 (4.0-10.0)
[2022-04-22 10:39] LABS: CALCIUM 9.1 mg/dL (8.5-10.1)
[2022-04-22 10:40] LABS: ALBUMIN 3.8 g/dl (3.4-5.0); BLOOD UREA NITROGEN 15.1 mg/dL (7-18)
[2022-04-22 10:42] LABS: BILIRUBIN,DIRECT 0.3 mg/dL (0.0-0.2)
[2022-04-22 10:43] LABS: CREATININE 0.7 mg/dL (0.55-1.3)
[2022-04-22 10:44] LABS: TOT PROT 6.8 g/dl (6.4-8.2)
[2022-04-22 10:45] LABS: BILIRUBIN,TOTAL 0.9 mg/dL (0.2-1)
[2022-04-22 15:29] VITALS: RESP 20; TEMP 98.8
[2022-04-22 15:36] VITALS: BP 135/84; PULSE 70
[2022-04-22] MEDS ORDERED: PORTA CATH FLUSH 10 ML IVPUSH PRN (15:36)
== END 2022-04-22 12:20 | disposition home or self-care (01) ==
LOC: JONCCHEMO 08:58 → J7W 09:00 → JONCCHEMO 12:20
PROVIDERS: ATTEND Internal Medicine Hematology & Oncology
DX: Z51.11 Encounter for antineoplastic chemotherapy (principal); C50.411 Malignant neoplasm of upper-outer quadrant of right female breast
CPT/HCPCS: 36415; 80048; 80076; 85025; 96375; 96413; Q5117

== ENCOUNTER 2022-05-13 08:48 | Day surgery (SDC) | payer OTHER ==
[2022-05-13 09:52] LABS: BASO % 0.5 % (0-2.0); EOS % 2.5 % (0-4.5); HEMATOCRIT 42.2 % (32.4-45.2); HEMOGLOBIN 13.6 GM/dL (10.7-15.3); LYMPH % 18.5 % (8-40); MCH 26.4 pg (25.7-33.7); MCHC 32.3 g/dl (32.0-36.0); MEAN CELL VOLUME 81.7 fl (80-96); MEAN PLT VOLUME 8.6 fl (7.5-11.1); MONO % 8.4 % (3.8-10.2); NEUT % 70.1 % (42.8-82.8); PLATELET COUNT 227 10^3/uL (134-434); RBC 5.17 M/mm3 (3.60-5.2); RDW 14.9 % (11.6-15.6); WHITE BLOOD COUNT 3.4 K/mm3 (4.0-10.0)
[2022-05-13] MEDS ORDERED: DEXAMETHASONE SODIUM PHOSPHATE 10 MG in SODIUM CHLORIDE 50 ML IVPB ONE (10:00)
[2022-05-13 10:12] LABS: CALCIUM 9.7 mg/dL (8.5-10.1)
[2022-05-13 10:13] LABS: BLOOD UREA NITROGEN 12.6 mg/dL (7-18)
[2022-05-13 10:15] LABS: BILIRUBIN,DIRECT 0.2 mg/dL (0.0-0.2)
[2022-05-13 10:16] LABS: CREATININE 0.6 mg/dL (0.55-1.3)
[2022-05-13 10:17] LABS: BILIRUBIN,TOTAL 0.9 mg/dL (0.2-1)
[2022-05-13 10:18] LABS: TOT PROT 7.1 g/dl (6.4-8.2)
[2022-05-13] MEDS ORDERED: SODIUM CHLORIDE IVPB ONE (10:30)
[2022-05-13] MEDS ORDERED: TRASTUZUMAB ANNS IVPB ONE (10:30)
[2022-05-13 15:58] VITALS: BP 113/70; PULSE 81; RESP 18; TEMP 98.5
[2022-05-13] MEDS ORDERED: PORTA CATH FLUSH 10 ML IVPUSH PRN (15:58)
== END 2022-05-13 13:25 | disposition home or self-care (01) ==
LOC: JCHEMO 08:48
PROVIDERS: ATTEND Internal Medicine Hematology & Oncology
DX: Z51.11 Encounter for antineoplastic chemotherapy (principal); C50.411 Malignant neoplasm of upper-outer quadrant of right female breast
CPT/HCPCS: 36415; 80048; 80076; 85025; 96367; 96413; Q5117

== ENCOUNTER 2022-06-03 08:45 | Day surgery (SDC) | payer OTHER ==
[2022-06-03] MEDS ORDERED: DEXAMETHASONE SODIUM PHOSPHATE 10 MG in SODIUM CHLORIDE 50 ML IVPB ONE (09:30)
[2022-06-03 09:42] LABS: CALCIUM 9.1 mg/dL (8.5-10.1)
[2022-06-03 09:43] LABS: ALBUMIN 3.9 g/dl (3.4-5.0)
[2022-06-03 09:46] LABS: BILIRUBIN,DIRECT 0.2 mg/dL (0.0-0.2); CREATININE 0.6 mg/dL (0.55-1.3)
[2022-06-03 09:47] LABS: TOT PROT 6.7 g/dl (6.4-8.2)
[2022-06-03 09:48] LABS: BILIRUBIN,TOTAL 0.7 mg/dL (0.2-1)
[2022-06-03] MEDS ORDERED: TRASTUZUMAB ANNS IVPB ONE (10:00)
[2022-06-03] MEDS ORDERED: SODIUM CHLORIDE IVPB ONE (10:00)
[2022-06-03 10:09] LABS: BASO % 0.7 % (0-2.0); EOS % 1.7 % (0-4.5); HEMATOCRIT 40.7 % (32.4-45.2); HEMOGLOBIN 13.3 GM/dL (10.7-15.3); LYMPH % 23.5 % (8-40); MCH 26.7 pg (25.7-33.7); MCHC 32.6 g/dl (32.0-36.0); MEAN CELL VOLUME 81.8 fl (80-96); MEAN PLT VOLUME 8.9 fl (7.5-11.1); MONO % 5.7 % (3.8-10.2); NEUT % 68.4 % (42.8-82.8); PLATELET COUNT 206 10^3/uL (134-434); RBC 4.98 M/mm3 (3.60-5.2); WHITE BLOOD COUNT 3.4 K/mm3 (4.0-10.0)
[2022-06-03 15:37] VITALS: TEMP 98
[2022-06-03 15:44] VITALS: BP 128/75; PULSE 77; RESP 18
[2022-06-03] MEDS ORDERED: PORTA CATH FLUSH 10 ML IVPUSH PRN (15:44)
== END 2022-06-03 12:45 | disposition home or self-care (01) ==
LOC: JONCCHEMO 08:45 → J7W 08:49 → JONCCHEMO 12:45
PROVIDERS: ATTEND Internal Medicine Hematology & Oncology
DX: Z51.11 Encounter for antineoplastic chemotherapy (principal); C50.411 Malignant neoplasm of upper-outer quadrant of right female breast
CPT/HCPCS: 36415; 80048; 80076; 85025; 96367; 96413; Q5117

== ENCOUNTER 2022-06-24 08:41 | Day surgery (SDC) | payer OTHER ==
[2022-06-24 09:29] LABS: BASO % 0.7 % (0-2.0); EOS % 1.8 % (0-4.5); HEMATOCRIT 42.5 % (32.4-45.2); LYMPH % 24.9 % (8-40); MCH 26.5 pg (25.7-33.7); MEAN CELL VOLUME 80.5 fl (80-96); MEAN PLT VOLUME 8.3 fl (7.5-11.1); MONO % 6.4 % (3.8-10.2); NEUT % 66.2 % (42.8-82.8); PLATELET COUNT 233 10^3/uL (134-434); RBC 5.28 M/mm3 (3.60-5.2); RDW 13.7 % (11.6-15.6); WHITE BLOOD COUNT 4.1 K/mm3 (4.0-10.0)
[2022-06-24] MEDS ORDERED: DEXAMETHASONE SODIUM PHOSPHATE 10 MG in SODIUM CHLORIDE 50 ML IVPB ONE (09:30)
[2022-06-24 09:54] LABS: BLOOD UREA NITROGEN 15.4 mg/dL (7-18); CALCIUM 9.7 mg/dL (8.5-10.1)
[2022-06-24 09:57] LABS: CREATININE 0.6 mg/dL (0.55-1.3)
[2022-06-24 09:58] LABS: BILIRUBIN,DIRECT 0.3 mg/dL (0.0-0.2)
[2022-06-24 09:59] LABS: TOT PROT 7.2 g/dl (6.4-8.2)
[2022-06-24] MEDS ORDERED: SODIUM CHLORIDE IVPB ONE (10:00)
[2022-06-24] MEDS ORDERED: TRASTUZUMAB ANNS IVPB ONE (10:00)
[2022-06-24] MEDS ORDERED: PORTA CATH FLUSH 10 ML IVPUSH PRN (15:42)
[2022-06-24 15:43] VITALS: PULSE 72; RESP 18; TEMP 98.3
[2022-06-25 07:27] VITALS: BP 118/73
== END 2022-06-24 12:25 | disposition home or self-care (01) ==
LOC: JONCCHEMO 08:41 → J7W 08:42 → JONCCHEMO 12:25
PROVIDERS: ATTEND Internal Medicine Hematology & Oncology
DX: Z51.11 Encounter for antineoplastic chemotherapy (principal); C50.911 Malignant neoplasm of unspecified site of right female breast; Z17.0 Estrogen receptor positive status [ER+]
CPT/HCPCS: 36415; 80048; 80076; 85025; 96367; 96413; Q5117

== ENCOUNTER 2022-07-15 08:34 | Day surgery (SDC) | payer OTHER ==
[2022-07-15 09:21] LABS: BASO % 0.8 % (0-2.0); HEMATOCRIT 41.7 % (32.4-45.2); HEMOGLOBIN 13.4 GM/dL (10.7-15.3); LYMPH % 21.1 % (8-40); MCHC 32.1 g/dl (32.0-36.0); MEAN CELL VOLUME 80.9 fl (80-96); MEAN PLT VOLUME 9.1 fl (7.5-11.1); MONO % 7.3 % (3.8-10.2); NEUT % 68.8 % (42.8-82.8); PLATELET COUNT 236 10^3/uL (134-434); RBC 5.16 M/mm3 (3.60-5.2); RDW 13.3 % (11.6-15.6); WHITE BLOOD COUNT 5.6 K/mm3 (4.0-10.0)
[2022-07-15 09:39] LABS: CALCIUM 9.6 mg/dL (8.5-10.1)
[2022-07-15 09:40] LABS: ALBUMIN 3.7 g/dl (3.4-5.0); BLOOD UREA NITROGEN 15.7 mg/dL (7-18)
[2022-07-15 09:42] LABS: BILIRUBIN,DIRECT 0.2 mg/dL (0.0-0.2)
[2022-07-15 09:43] LABS: CREATININE 0.7 mg/dL (0.55-1.3)
[2022-07-15 09:44] LABS: BILIRUBIN,TOTAL 0.9 mg/dL (0.2-1)
[2022-07-15 09:45] LABS: TOT PROT 6.7 g/dl (6.4-8.2)
[2022-07-15] MEDS ORDERED: DEXAMETHASONE SODIUM PHOSPHATE 10 MG in SODIUM CHLORIDE 50 ML IVPB ONE (10:00)
[2022-07-15] MEDS ORDERED: TRASTUZUMAB ANNS IVPB ONE (10:30)
[2022-07-15] MEDS ORDERED: SODIUM CHLORIDE IVPB ONE (10:30)
[2022-07-15 17:36] VITALS: BP 117/75; PULSE 82; RESP 18; TEMP 98.3
[2022-07-15] MEDS ORDERED: PORTA CATH FLUSH 10 ML IVPUSH PRN (17:36)
== END 2022-07-15 12:35 | disposition home or self-care (01) ==
LOC: JONCCHEMO 08:34
PROVIDERS: ATTEND Internal Medicine Hematology & Oncology
DX: Z51.11 Encounter for antineoplastic chemotherapy (principal); C50.911 Malignant neoplasm of unspecified site of right female breast
CPT/HCPCS: 36415; 80048; 80076; 85025; 96367; 96413; Q5117

== ENCOUNTER 2022-08-05 08:47 | Day surgery (SDC) | payer OTHER ==
[2022-08-05 09:24] LABS: BASO % 0.8 % (0-2.0); HEMATOCRIT 44.4 % (32.4-45.2); HEMOGLOBIN 14.2 GM/dL (10.7-15.3); LYMPH % 26.4 % (8-40); MCH 25.8 pg (25.7-33.7); MCHC 31.9 g/dl (32.0-36.0); MEAN CELL VOLUME 80.9 fl (80-96); MEAN PLT VOLUME 9.5 fl (7.5-11.1); MONO % 7.6 % (3.8-10.2); NEUT % 63.2 % (42.8-82.8); PLATELET COUNT 245 10^3/uL (134-434); RBC 5.48 M/mm3 (3.60-5.2); RDW 13.6 % (11.6-15.6); WHITE BLOOD COUNT 4.6 K/mm3 (4.0-10.0)
[2022-08-05] MEDS ORDERED: DEXAMETHASONE SODIUM PHOSPHATE 10 MG in SODIUM CHLORIDE 50 ML IVPB ONE (09:30)
[2022-08-05 09:43] LABS: CALCIUM 9.7 mg/dL (8.5-10.1)
[2022-08-05 09:45] LABS: ALBUMIN 4.1 g/dl (3.4-5.0); BLOOD UREA NITROGEN 15.5 mg/dL (7-18)
[2022-08-05 09:47] LABS: BILIRUBIN,DIRECT 0.3 mg/dL (0.0-0.2)
[2022-08-05 09:48] LABS: BILIRUBIN,TOTAL 0.8 mg/dL (0.2-1); CREATININE 0.8 mg/dL (0.55-1.3); TOT PROT 7.3 g/dl (6.4-8.2)
[2022-08-05] MEDS ORDERED: SODIUM CHLORIDE IVPB ONE (10:00)
[2022-08-05] MEDS ORDERED: TRASTUZUMAB ANNS IVPB ONE (10:00)
[2022-08-05 13:57] VITALS: BP 130/98; PULSE 99; RESP 20; TEMP 98.2
[2022-08-05] MEDS ORDERED: PORTA CATH FLUSH 10 ML IVPUSH PRN (14:03)
== END 2022-08-05 13:30 | disposition home or self-care (01) ==
LOC: JONCCHEMO 08:47 → J7W 08:48 → JONCCHEMO 13:30
PROVIDERS: ATTEND Internal Medicine Hematology & Oncology
DX: Z51.11 Encounter for antineoplastic chemotherapy (principal); C50.911 Malignant neoplasm of unspecified site of right female breast
CPT/HCPCS: 36415; 80048; 80076; 85025; 96375; 96413; Q5117

== ENCOUNTER 2022-08-26 08:45 | Day surgery (SDC) | payer OTHER ==
[2022-08-26] MEDS ORDERED: DEXAMETHASONE SODIUM PHOSPHATE 10 MG in SODIUM CHLORIDE 50 ML IVPB ONE (09:30)
[2022-08-26 09:41] LABS: BASO % 0.6 % (0-2.0); HEMATOCRIT 40.6 % (32.4-45.2); HEMOGLOBIN 13.2 GM/dL (10.7-15.3); MCH 26.2 pg (25.7-33.7); MCHC 32.5 g/dl (32.0-36.0); MEAN CELL VOLUME 80.6 fl (80-96); MONO % 6.3 % (3.8-10.2); NEUT % 67.1 % (42.8-82.8); PLATELET COUNT 264 10^3/uL (134-434); RBC 5.04 M/mm3 (3.60-5.2); RDW 13.9 % (11.6-15.6); WHITE BLOOD COUNT 5.1 K/mm3 (4.0-10.0)
[2022-08-26] MEDS ORDERED: TRASTUZUMAB ANNS IVPB ONE (10:00)
[2022-08-26] MEDS ORDERED: SODIUM CHLORIDE IVPB ONE (10:00)
[2022-08-26 10:15] LABS: CALCIUM 9.4 mg/dL (8.5-10.1)
[2022-08-26 10:16] LABS: ALBUMIN 3.9 g/dl (3.4-5.0); BLOOD UREA NITROGEN 12.4 mg/dL (7-18)
[2022-08-26 10:18] LABS: BILIRUBIN,DIRECT 0.2 mg/dL (0.0-0.2)
[2022-08-26 10:19] LABS: CREATININE 0.6 mg/dL (0.55-1.3)
[2022-08-26 10:20] LABS: TOT PROT 6.9 g/dl (6.4-8.2)
[2022-08-26 10:36] LABS: BILIRUBIN,TOTAL 0.9 mg/dL (0.2-1)
[2022-08-26 15:31] VITALS: BP 128/70; PULSE 76; RESP 20; TEMP 98.3
[2022-08-26] MEDS ORDERED: PORTA CATH FLUSH 10 ML IVPUSH PRN (15:31)
== END 2022-08-26 12:45 | disposition home or self-care (01) ==
LOC: JCHEMO 08:45
PROVIDERS: ATTEND Internal Medicine Hematology & Oncology
DX: Z51.11 Encounter for antineoplastic chemotherapy (principal); C50.911 Malignant neoplasm of unspecified site of right female breast
CPT/HCPCS: 36415; 80048; 80076; 85025; 96367; 96413; Q5117

== ENCOUNTER 2022-09-16 08:39 | Day surgery (SDC) | payer OTHER ==
[2022-09-16 09:17] LABS: BASO % 0.7 % (0-2.0); EOS % 2.3 % (0-4.5); HEMATOCRIT 40.2 % (32.4-45.2); HEMOGLOBIN 13.2 GM/dL (10.7-15.3); LYMPH % 23.2 % (8-40); MCH 26.2 pg (25.7-33.7); MCHC 32.8 g/dl (32.0-36.0); MEAN CELL VOLUME 80.1 fl (80-96); MEAN PLT VOLUME 9.1 fl (7.5-11.1); NEUT % 67.8 % (42.8-82.8); PLATELET COUNT 245 10^3/uL (134-434); RBC 5.01 M/mm3 (3.60-5.2); WHITE BLOOD COUNT 5.1 K/mm3 (4.0-10.0)
[2022-09-16] MEDS ORDERED: DEXAMETHASONE SODIUM PHOSPHATE 10 MG in SODIUM CHLORIDE 50 ML IVPB ONE (09:30)
[2022-09-16 09:39] LABS: ALBUMIN 3.9 g/dl (3.4-5.0); BLOOD UREA NITROGEN 18.5 mg/dL (7-18); CALCIUM 9.4 mg/dL (8.5-10.1)
[2022-09-16 09:42] LABS: BILIRUBIN,DIRECT 0.2 mg/dL (0.0-0.2); CREATININE 0.6 mg/dL (0.55-1.3)
[2022-09-16 09:44] LABS: BILIRUBIN,TOTAL 0.8 mg/dL (0.2-1)
[2022-09-16] MEDS ORDERED: TRASTUZUMAB ANNS IVPB ONE (10:00)
[2022-09-16] MEDS ORDERED: SODIUM CHLORIDE IVPB ONE (10:00)
[2022-09-16 16:26] VITALS: TEMP 98.3
[2022-09-16 16:33] VITALS: BP 134/84; PULSE 87; RESP 20
[2022-09-16] MEDS ORDERED: PORTA CATH FLUSH 10 ML IVPUSH PRN (16:33)
== END 2022-09-16 11:05 | disposition home or self-care (01) ==
LOC: JONCCHEMO 08:39
PROVIDERS: ATTEND Internal Medicine Hematology & Oncology
DX: Z51.11 Encounter for antineoplastic chemotherapy (principal); C50.911 Malignant neoplasm of unspecified site of right female breast
CPT/HCPCS: 36415; 80048; 80076; 85025; 96375; 96413; Q5117